=== PATIENT | female | born 1950 | race Caucasian/White ===

== ENCOUNTER 2023-04-22 07:16 | Day surgery (SDC) | payer MEDICARE, MEDICAID ==
[~2023-04-22] VITALS: Ht 149.9 cm; Wt 46.7 kg
[2023-04-22] MEDS ORDERED: fentaNYL citrate 0.05 MG/ML VIAL ONE (09:24)
[2023-04-22] MEDS ORDERED: LIDOCAINE 2% 100 MG/5 ML UJET TP ONE (09:24)
[2023-04-22] MEDS ORDERED: fentaNYL citrate 0.05 MG/ML VIAL IVP ONE (11:30)
== END 2023-04-22 11:50 | disposition home or self-care (01) ==
LOC: MDS 07:16 → MMU 07:17 → MDS 11:50
PROVIDERS: ATTEND Internal Medicine Gastroenterology
DX: Z12.11 Encounter for screening for malignant neoplasm of colon (principal); D12.4 Benign neoplasm of descending colon; I10 Essential (primary) hypertension; E78.00 Pure hypercholesterolemia, unspecified; J45.909 Unspecified asthma, uncomplicated; F41.9 Anxiety disorder, unspecified; Z86.010 Personal history of colon polyps; E03.9 Hypothyroidism, unspecified; Z96.652 Presence of left artificial knee joint; Z88.5 Allergy status to narcotic agent; Z79.899 Other long term (current) drug therapy
CPT/HCPCS: 45385; 88305; J3010